=== PATIENT | female | born 1995 | race Asian ===

== ENCOUNTER 2019-01-13 09:27 | Emergency (ER) | payer OTHER ==
[~2019-01-13] VITALS: Ht 154.9 cm; Wt 48.0 kg
[2019-01-13 10:21] LABS: HEMATOCRIT 41.4 % (36.0-47.0); HEMOGLOBIN 13.4 g/dl (12.0-15.5); MEAN CORPUSCULAR HEMOGLOBIN 29.4 pg (27.0-33.0); MEAN CORPUSCULAR HGB CONC 32.4 g/dl (32.0-36.5); MEAN CORPUSCULAR VOLUME 90.8 fl (80.0-96.0); PLATELET COUNT, AUTOMATED 287 10^3/uL (150-450); RED BLOOD COUNT 4.56 10^6/uL (4.00-5.40); WHITE BLOOD COUNT 8.2 10^3/uL (4.0-10.0)
[2019-01-13 10:43] LABS: HCG, SERUM QUALITATIVE NEGATIVE (NEGATIVE)
[2019-01-13 10:50] LABS: ACETAMINOPHEN LEVEL < 2.0 UG/ML (10.0-30.0); ALBUMIN 4.3 GM/DL (3.2-5.2); ALT/SGPT 17 U/L (12-78); BILIRUBIN,DIRECT 0.2 MG/DL (0.0-0.2); BILIRUBIN,TOTAL 0.7 MG/DL (0.2-1.0); BLOOD UREA NITROGEN 10 MG/DL (7-18); CALCIUM LEVEL 9.3 MG/DL (8.5-10.1); CARBON DIOXIDE LEVEL 28 MEQ/L (21-32); CHLORIDE LEVEL 108 MEQ/L (98-107); CREATININE FOR GFR 1.05 MG/DL (0.55-1.30); ETHYL ALCOHOL (ETHANOL) < 0.003 % (0.000-0.010); GLOMERULAR FILTRATION RATE > 60.0 (>60); GLUCOSE, FASTING 95 MG/DL (70-100); POTASSIUM SERUM 4.1 MEQ/L (3.5-5.1); SALICYLATE LEVEL < 1.7 MG/DL (5.0-30.0); SODIUM LEVEL 141 MEQ/L (136-145); TOTAL PROTEIN 7.8 GM/DL (6.4-8.2)
[2019-01-13 10:52] LABS: AMPHETAMINES LEVEL URINE NEGATIVE (NEGATIVE); BARBITURATES URINE NEGATIVE (NEGATIVE); BENZODIAZEPINES URINE NEGATIVE (NEGATIVE); CANNABINOIDS URINE NEGATIVE (NEGATIVE); COCAINE METABOLITE URINE NEGATIVE (NEGATIVE); METHADONE URINE NEGATIVE (NEGATIVE); OPIATES URINE NEGATIVE (NEGATIVE); PHENCYCLIDINE URINE NEGATIVE (NEGATIVE)
[2019-01-13] MEDS: LIDOCAINE W/EPINEPHRINE 1% 20ML VIAL SC ONE ×2 (14:04→14:06)
[2019-01-13 14:40] VITALS: BP 125/72
== END 2019-01-13 14:53 | disposition home or self-care (01) ==
LOC: M ED 09:27
DX: F41.1 Generalized anxiety disorder (principal); F60.9 Personality disorder, unspecified; S81.812A Laceration without foreign body, left lower leg, initial encounter; W26.8XXA Contact with other sharp object(s), not elsewhere classified, initial encounter; Y92.89 Other specified places as the place of occurrence of the external cause; Z87.891 Personal history of nicotine dependence
CPT/HCPCS: 36415; 80048; 80076; 80307; 84443; 84703; 85027; 99284; G0480

== ENCOUNTER 2019-02-10 10:18 | Inpatient (IN) | payer OTHER ==
[~2019-02-10] VITALS: Ht 154.9 cm; Wt 48.3 kg
[2019-02-10] MEDS ORDERED: PROZ10CA7 PO (10:25)
[2019-02-10 12:46] LABS: HEMATOCRIT 40.5 % (36.0-47.0); HEMOGLOBIN 13.6 g/dl (12.0-15.5); MEAN CORPUSCULAR HEMOGLOBIN 30.2 pg (27.0-33.0); MEAN CORPUSCULAR HGB CONC 33.6 g/dl (32.0-36.5); MEAN CORPUSCULAR VOLUME 89.8 fl (80.0-96.0); PLATELET COUNT, AUTOMATED 321 10^3/uL (150-450); RED BLOOD COUNT 4.51 10^6/uL (4.00-5.40); WHITE BLOOD COUNT 7.7 10^3/uL (4.0-10.0)
[2019-02-10 13:15] LABS: HCG, SERUM QUALITATIVE NEGATIVE (NEGATIVE)
[2019-02-10 13:16] LABS: AMPHETAMINES LEVEL URINE NEGATIVE (NEGATIVE); BARBITURATES URINE NEGATIVE (NEGATIVE); BENZODIAZEPINES URINE NEGATIVE (NEGATIVE); CANNABINOIDS URINE NEGATIVE (NEGATIVE); COCAINE METABOLITE URINE NEGATIVE (NEGATIVE); METHADONE URINE NEGATIVE (NEGATIVE); OPIATES URINE NEGATIVE (NEGATIVE); PHENCYCLIDINE URINE NEGATIVE (NEGATIVE)
[2019-02-10 13:25] LABS: ACETAMINOPHEN LEVEL < 2.0 UG/ML (10.0-30.0); ALBUMIN 4.2 GM/DL (3.2-5.2); ALT/SGPT 12 U/L (12-78); BILIRUBIN,DIRECT 0.2 MG/DL (0.0-0.2); BILIRUBIN,TOTAL 0.5 MG/DL (0.2-1.0); BLOOD UREA NITROGEN 10 MG/DL (7-18); CALCIUM LEVEL 9.8 MG/DL (8.5-10.1); CARBON DIOXIDE LEVEL 28 MEQ/L (21-32); CHLORIDE LEVEL 108 MEQ/L (98-107); CREATININE FOR GFR 0.86 MG/DL (0.55-1.30); ETHYL ALCOHOL (ETHANOL) < 0.003 % (0.000-0.010); GLOMERULAR FILTRATION RATE > 60.0 (>60); GLUCOSE, FASTING 101 MG/DL (70-100); POTASSIUM SERUM 3.7 MEQ/L (3.5-5.1); SALICYLATE LEVEL < 1.7 MG/DL (5.0-30.0); SODIUM LEVEL 142 MEQ/L (136-145)
[2019-02-10] MEDS ORDERED: PREDOPD OU (14:15)
[2019-02-10] MEDS ORDERED: ACETAMINOPHEN TAB 650MG DOSE (2X325MG) PO PRN (15:45)
[2019-02-10] MEDS ORDERED: MOM 30ML SUSPENSION UDC PO PRN (15:45)
[2019-02-10] MEDS ORDERED: MAALOX 30 ML SUSP *UDC PO PRN (15:45)
[2019-02-10 18:00] VITALS: BP 144/82
[2019-02-10] MEDS ORDERED: prednisoLONE ACET 1% OPHTH SUSP 5ML OU STA (18:52)
[2019-02-10 19:25] VITALS: BP 144/82
[2019-02-10] MEDS ORDERED: FLUoxetine 10 MG CAP PO SCH (21:00)
[2019-02-10] MEDS: POLYVINYL ALCOHOL OPHTH SOLN 15 ML(LIQUITEARS) OU PRN (21:18)
[2019-02-10] MEDS: traZODone 50 MG TAB PO PRN (22:42)
[2019-02-10] MEDS: prednisoLONE ACET 1% OPHTH SUSP 5ML OU SCH (22:42)
[2019-02-11] MEDS: prednisoLONE ACET 1% OPHTH SUSP 5ML OU SCH ×5 (06:05→21:08)
[2019-02-11 06:44] VITALS: BP 137/67
[2019-02-11] MEDS ORDERED: prednisoLONE ACET 1% OPHTH SUSP 5ML OU SCH (09:00)
[2019-02-11] MEDS: POLYVINYL ALCOHOL OPHTH SOLN 15 ML(LIQUITEARS) OU PRN (11:56)
[2019-02-11] MEDS: PARoxetine 10MG TABLET PO SCH (12:45)
[2019-02-11 15:29] VITALS: BP 137/67
[2019-02-11 16:36] VITALS: BP 136/76
--- NOTE | 2019-02-11 17:00 | MHHPE ---
DATE OF ADMISSION: 02/10/2019 CURRENT MEDICATIONS: - Prozac 20 mg daily CHIEF COMPLAINT: Anxiety and depression. 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 [place] Patient was referred by Captain Ricky Liriano LCSW at [facility]. Patient had a prolonged panic attack and apparently was in crisis. Patient has a history of severe cutting and was recently brought to the emergency room for sutures. The major precipitating stressor of late is that a friend of hers committed suicide 2 or 3 weeks ago. Patient is having trouble coping with that. Patient apparently has had suicidal ideation in the past and had contemplated either using a [employer] weapon or getting a gun here in [facility]. Patient is very focused on her work. She minimizes her problem and her situation. Patient was just started on Prozac 2 or 3 days ago. She has just taken it once. She does not like medication. She claims to be tolerating it well. She denies any side effects from it. Patient states that her appetite is fine. She denies any recent weight change, either up or down. She claims her concentration is fine. She reports her energy level is good. She does get pleasure out of life; she enjoys running for example, she enjoys playing video games and socializing with friends. PAST PSYCHIATRIC HISTORY: Patient was seen by mental health staff at [facility] in July 2017 briefly. Those records are not available. She has no other previous psychiatric history. No history of hospitalizations. MEDICAL HISTORY: Patient is healthy. ALLERGIES: Patient denies. LEGAL HISTORY: None noted. CHEMICAL DEPENDENCY: None noted. SOCIAL HISTORY: Patient was born in [place]. She was raised in multiple states as her parents moved frequently. Patient lived in [place], [place], [place], and [place]. Her parents currently reside in [place]. Her father is a salesman. Her mother is an accounts payable accountant. Her brother is 23 and is working on a master's degree. Her sister is age 21 and will be graduating from [employer]. Patient is a college graduate. FAMILY PSYCHIATRIC HISTORY: None noted. MENTAL STATUS EXAMINATION: Patient is alert and oriented and somewhat cooperative. She does appear quite anxious with pressured speech and racing thoughts. She is not a good historian. Patient does report some grief over the loss of her friend but minimizes depressive symptoms. She denies being suicidal. She is not homicidal. Insight and judgment appear quite limited. Very secretive. She does appear to be intelligent. Grooming and hygiene appear good. No signs of cognitive deficits. ASSESSMENT: Patient does appear to be highly anxious and does have a history of depression and suicidal ideation even though she minimizes it. She shows no signs of working through her grief reaction. Patient appears to be a good candidate for a selective serotonin reuptake inhibitor (SSRI). Paxil is probably a better choice than Prozac, in my opinion. DIAGNOSES: Depressive disorder unspecified. Anxiety disorder unspecified. LENGTH OF STAY: 5-7 days. PLAN: Switch patient to Paxil. Staff to contact family. Involve in hospital milieu. GALDINO
[2019-02-11 19:32] VITALS: BP 136/76
--- NOTE | 2019-02-11 19:59 | CR.PDOC ---
General Date of Consultation: Feb 11, 2019 Attending Physician: REYES SHAW DO Consultation REASON FOR CONSULTATION/CHIEF COMPLAINT: Physical evaluation HISTORY OF PRESENT ILLNESS: Patient is 24 years old female with with no past medical history presented to the hospital in emotional distress secondary to loss significant one. According to patient she lost her close friend due to suicide a few weeks ago. After that she developed depression and anxiety. Patient denies fever, chills, nausea, vomiting, chest pain, palpitations, diarrhea or dysuria ALLERGIES: Beef (vomiting). HOME MEDICATIONS: Please see below. PAST MEDICAL HISTORY: No past medical history PAST SURGICAL HISTORY: No past surgical history FAMILY HISTORY: Father: Healthy Mother: Healthy Siblings: Healthy Children: None Hereditary Diseases: None Unexpected deaths due to medical reasons: None SOCIAL HISTORY: Marital status and/or living arrangements: Single Children: None Employment: [employer] Tobacco use: Denies ETOH: Denies Illicit drug use: Denies IV drug use: Denies Other relevant social factors: Denies REVIEW OF SYSTEMS: 10 point review of system is negative, except psychiatric mental status PHYSICAL EXAMINATION: VITAL SIGNS: Please see below. GENERAL APPEARANCE: NAD HEENT: PERRLA, EOMI RESPIRATORY: Clear to auscultation bilaterally CARDIOVASCULAR: S1-S2 ABDOMEN: Nontender, nondistended EXTREMITIES: No edema and NEUROLOGICAL: Nonfocal, cranial nerves intact PSYCHIATRIC: Patient demonstrates anxiety and pressured speech LABORATORY DATA: Please see below. ASSESSMENT/PLAN: Patient is 24 years old female was admitted to the hospital with depression and anxiety secondary to emotional distress. Patient does not have any acute physical problem/ diseases except mental problem. I would recommend to monitor EKG for QTC prolongation Vital Signs/I&O Vital Signs Date Time Temp Pulse Resp B/P (MAP) Pulse Ox O2 Delivery O2 Flow Rate FiO2 02/11/19 19:32 99.0 79 16 136/76 98 02/11/19 15:29 Room Air Allergies Coded Allergies: No Known Allergies (Unverified , 01/13/19) Home Medications Scheduled Fluoxetine HCl (Prozac) 10 Mg Capsule, 10 MG PO DAILY, (Reported) Prednisolone Acetate (Prednisolone Acetate 1% Opth Susp) 5 Ml Drops.susp, 1 DROP OU QID, (Reported) REYES SHAW DO Feb 11, 2019 19:59
[2019-02-11] MEDS ORDERED: PREDNISOLONE ACET 1% OU SCH (21:00)
[2019-02-11] MEDS: traZODone 50 MG TAB PO PRN (22:26)
[2019-02-12] MEDS: prednisoLONE ACET 1% OPHTH SUSP 5ML OU SCH ×5 (05:57→21:44)
[2019-02-12 06:45] VITALS: BP 118/65
[2019-02-12] MEDS: PARoxetine 10MG TABLET PO SCH ×2 (08:33→14:35)
[2019-02-12 18:00] VITALS: BP 144/70
[2019-02-12] MEDS: traZODone 50 MG TAB PO PRN (22:37)
[2019-02-13] MEDS: prednisoLONE ACET 1% OPHTH SUSP 5ML OU SCH ×5 (06:18→20:33)
[2019-02-13 06:46] VITALS: BP 134/77
[2019-02-13] MEDS: PARoxetine 10MG TABLET PO SCH (08:07)
[2019-02-13 08:34] VITALS: BP 134/77
--- NOTE | 2019-02-13 10:13 | MHIPNPDOC ---
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 Patient was referred by Captain Ricky Liriano LCSW at [facility]. Patient had a prolonged panic attack and apparently was in crisis. Patient has a history of severe cutting and was recently brought to the emergency room for sutures. The major precipitating stressor of late is that a friend of hers committed suicide 2 or 3 weeks ago. Patient is having trouble coping with that. Patient apparently has had suicidal ideation in the past and had contemplated either using a [employer] grade weapon or getting a gun here in [facility]. Patient is very focused on her work. She minimizes her problem and her situation. Patient was just started on Prozac 2 or 3 days ago. She has just taken it once. She does not like medication. She claims to be tolerating it well. She denies any side effects from it. Patient states that her appetite is fine. She denies any recent weight change, either up or down. She claims her concentration is fine. She reports her energy level is good. She does get pleasure out of life; she enjoys running for example, she enjoys playing video games and socializing with friends. VITAL SIGNS: See below. NEW TEST RESULTS: See below. CURRENT MEDICATIONS: See below. MENTAL STATUS EXAMINATION: Patient is alert and oriented and somewhat (look to assessment) cooperative. She does appear less anxious with no speech or thoughts. She is not a good historian. Patient does report some grief over the loss of her friend but minimizes depressive symptoms. She denies being suicidal. She is not homicidal. Insight and judgment appear quite limited. She is intelligent. Grooming and hygiene appear good. No signs of cognitive deficits. DIAGNOSES: Depressive disorder unspecified. Anxiety disorder unspecified. ASSESSMENT:Pt seen and states that her mood is better. Denies she likes the paxil and felt she was doing better on prozac. Pt states she's missing getting her hair done and going to a wedding to meet a partner b/c that's helpful for her. Spoke with pt about taking the time to devote to herself here regarding her mental health which she somewhat understood. States she's being social on the milieu which is beneficial. States she slept well last night. Feels she is tolerating her medications well. She is attending groups and finding them helpful. She denies SI/HI, hallucinations, delusions. Pt feels safe here. MANAGEMENT PLAN: continue plan. Stop paxil, restart and increase prozac for mood. prozac 20mg daily trazodone 50mg qhs prn insomnia TIME SPENT: 30 minutes. Vital Signs Vital Signs Date Time Temp Pulse Resp B/P (MAP) Pulse Ox O2 Delivery O2 Flow Rate FiO2 02/13/19 08:34 Room Air 02/13/19 08:34 97.5 90 12 134/77 98 Current Medications Current Medications Medications (Trade) Dose Ordered Sig/Corine Route PRN Reason Start Time Stop Time Status Last Admin Dose Admin Acetaminophen (Tylenol Tab) 650 mg Q6HP PRN PO HEADACHE or DISCOMFORT 02/10/19 15:45 02/10/19 16:54 Al Hydrox/Mg Hydrox/Simethicone (Mylanta) 30 ml Q4HP PRN PO HEARTBURN/INDIGESTION 02/10/19 15:45 Artificial Tears (Akwa Tears) 2 drop QIDP PRN OU DRY EYES 02/10/19 19:15 02/11/19 11:56 Fluoxetine HCl (PROzac) 10 mg QHS PO 02/10/19 21:00 02/11/19 12:41 DC 02/10/19 21:17 Home Med (Med Rec Complete!) ASDIRECTED XX 02/10/19 14:30 02/10/19 14:30 DC Magnesium Hydroxide (Milk Of Magnesia) 30 ml DAILYPRN PRN PO CONSTIPATION 02/10/19 15:45 Paroxetine HCl (PAXil) 10 mg DAILY PO 02/11/19 12:45 02/13/19 08:07 Patient Own Medication (Patient'S Own Med) prednisoLONE ACET 1% OPHTH S... 5XD OU 02/11/19 21:00 02/11/19 21:00 DC Prednisolone Acetate (Predforte 1% Ophth Susp) 2 drop 5XD OU 02/10/19 21:00 02/13/19 09:46 Prednisolone Acetate (Predforte 1% Ophth Susp) 2 drop QID OU 02/11/19 09:00 02/11/19 09:00 DC Prednisolone Acetate (Predforte 1% Ophth Susp) 2 drop STAT STAT OU 02/10/19 18:52 02/10/19 19:01 DC 02/10/19 19:17 Trazodone HCl (Desyrel) 50 mg QHSP PRN PO INSOMNIA 02/10/19 15:45 02/12/19 22:37 Allergies Coded Allergies: No Known Allergies (Unverified , 01/13/19) DIANA CHURCH DO Feb 13, 2019 10:13 am
[2019-02-13] MEDS ORDERED: FLUoxetine 20 MG CAP PO ONE (11:00)
--- NOTE | 2019-02-13 13:38 | MHIPN ---
DATE: 02/12/2019 VITAL SIGNS: Temperature 97.6, pulse 71, respirations 12, blood pressure 118/65. CURRENT MEDICATIONS: - Paxil 10 mg daily, patient refusing - trazodone 50 mg nightly as needed HISTORY OF PRESENT ILLNESS: Patient was not cooperative taking the Paxil even though she had agreed to it. She claims she does not like to take medications. Patient is advised that her chain of command and the [facility] staff would support her medication compliance, she grudgingly agrees to go back on the Paxil and will start it today. Patient has been attending groups. She minimizes all symptoms as usual. She claims her appetite is fine, she claims she always sleeps well at night, and that her concentration is excellent. Patient is very secretive about her family. She claims that she is not able to contact her father by cell phone, she claims that he is out of town in [place] on business. She claims her mother is in [place] and is not available. Patient gives changing stories to explain why she cannot contact her father. She does not appear to be credible. MENTAL STATUS EXAMINATION: Patient is alert and oriented but is not cooperative with the treatment plan. Insight appears poor. Judgment appears poor. She denies feeling depressed. She does appear to be quite anxious with racing thoughts. Speech is quite pressured. She is quite restless and jittery. No signs of psychosis. Grooming and hygiene appear good. ASSESSMENT: Patient appears to be quite evasive. She is not working through any grief issues regarding the of a close friend who committed suicide recently. She has been evasive regarding family contact. Patient grudgingly agrees to go on a trial of Paxil. Patient is advised that Dr. Delacruz will be back in tomorrow and will be her new psychiatrist. DIAGNOSES: 1. Depressive disorder unspecified. 2. Anxiety disorder unspecified. PLAN: Encourage trial on low dose Paxil. Followup with Dr. Delacruz. Continue with milieu therapy. Staff to continue attempts to contact family members for more collateral contact.
[2019-02-13 18:00] VITALS: BP 136/91
[2019-02-13] MEDS: traZODone 50 MG TAB PO PRN (22:57)
[2019-02-13] MEDS: POLYVINYL ALCOHOL OPHTH SOLN 15 ML(LIQUITEARS) OU PRN (22:57)
[2019-02-14] MEDS: prednisoLONE ACET 1% OPHTH SUSP 5ML OU SCH ×5 (05:57→21:14)
[2019-02-14 06:39] VITALS: BP 119/80
[2019-02-14] MEDS: FLUoxetine 20 MG CAP PO SCH (08:57)
--- NOTE | 2019-02-14 10:26 | MHIPNPDOC ---
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 Patient was referred by Captain Ricky Liriano LCSW at [facility]. Patient had a prolonged panic attack and apparently was in crisis. Patient has a history of severe cutting and was recently brought to the emergency room for sutures. The major precipitating stressor of late is that a friend of hers committed suicide 2 or 3 weeks ago. Patient is having trouble coping with that. Patient apparently has had suicidal ideation in the past and had contemplated either using a [employer] grade weapon or getting a gun here in [facility]. Patient is very focused on her work. She minimizes her problem and her situation. Patient was just started on Prozac 2 or 3 days ago. She has just taken it once. She does not like medication. She claims to be tolerating it well. She denies any side effects from it. Patient states that her appetite is fine. She denies any recent weight change, either up or down. She claims her concentration is fine. She reports her energy level is good. She does get pleasure out of life; she enjoys running for example, she enjoys playing video games and socializing with friends. VITAL SIGNS: See below. NEW TEST RESULTS: See below. CURRENT MEDICATIONS: See below. MENTAL STATUS EXAMINATION: Patient is alert and oriented and cooperative. She does appear less anxious with no speech or thoughts. She is not a good historian. Patient reports improved mood and anxiety. She denies being suicidal. She is not homicidal. Insight and judgment appear quite limited. She is intelligent. Grooming and hygiene appear good. No signs of cognitive deficits. DIAGNOSES: Depressive disorder unspecified. Anxiety disorder unspecified. ASSESSMENT:Pt seen and states that her mood is "alright". States she's tolerating her prozac and is finding increased dose beneficial. States she's being social on the milieu which is beneficial. States she slept well last night. Feels she is tolerating her medications well. She is attending groups and finding them helpful. She denies SI/HI, hallucinations, delusions. Pt feels safe here. MANAGEMENT PLAN: continue plan. prozac 20mg daily trazodone 50mg qhs prn insomnia TIME SPENT: 30 minutes. Vital Signs Vital Signs Date Time Temp Pulse Resp B/P (MAP) Pulse Ox O2 Delivery O2 Flow Rate FiO2 02/14/19 06:39 98.5 65 18 119/80 (93) 02/13/19 08:34 Room Air 02/13/19 08:34 98 Current Medications Current Medications Medications (Trade) Dose Ordered Sig/Corine Route PRN Reason Start Time Stop Time Status Last Admin Dose Admin Acetaminophen (Tylenol Tab) 650 mg Q6HP PRN PO HEADACHE or DISCOMFORT 02/10/19 15:45 02/10/19 16:54 Al Hydrox/Mg Hydrox/Simethicone (Mylanta) 30 ml Q4HP PRN PO HEARTBURN/INDIGESTION 02/10/19 15:45 Artificial Tears (Akwa Tears) 2 drop QIDP PRN OU DRY EYES 02/10/19 19:15 02/13/19 22:57 Fluoxetine HCl (PROzac) 10 mg QHS PO 02/10/19 21:00 02/11/19 12:41 DC 02/10/19 21:17 Fluoxetine HCl (PROzac) 20 mg DAILY PO 02/14/19 09:00 02/14/19 08:57 Home Med (Med Rec Complete!) ASDIRECTED XX 02/10/19 14:30 02/10/19 14:30 DC Magnesium Hydroxide (Milk Of Magnesia) 30 ml DAILYPRN PRN PO CONSTIPATION 02/10/19 15:45 Paroxetine HCl (PAXil) 10 mg DAILY PO 02/11/19 12:45 02/13/19 10:13 DC 02/13/19 08:07 Patient Own Medication (Patient'S Own Med) prednisoLONE ACET 1% OPHTH S... 5XD OU 02/11/19 21:00 02/11/19 21:00 DC Prednisolone Acetate (Predforte 1% Ophth Susp) 2 drop 5XD OU 02/10/19 21:00 02/14/19 08:57 Prednisolone Acetate (Predforte 1% Ophth Susp) 2 drop QID OU 02/11/19 09:00 02/11/19 09:00 DC Prednisolone Acetate (Predforte 1% Ophth Susp) 2 drop STAT STAT OU 02/10/19 18:52 02/10/19 19:01 DC 02/10/19 19:17 Trazodone HCl (Desyrel) 50 mg QHSP PRN PO INSOMNIA 02/10/19 15:45 02/13/19 22:57 Allergies Coded Allergies: No Known Allergies (Unverified , 01/13/19) DIANA CHURCH DO Feb 14, 2019 9:26 am
[2019-02-14 13:51] VITALS: BP 119/80
[2019-02-14 18:32] VITALS: BP 130/72
[2019-02-14] MEDS: traZODone 50 MG TAB PO PRN (22:39)
[2019-02-15 06:36] VITALS: BP 115/73
[2019-02-15] MEDS: prednisoLONE ACET 1% OPHTH SUSP 5ML OU SCH ×4 (09:09→21:17)
[2019-02-15] MEDS: FLUoxetine 20 MG CAP PO SCH (09:09)
[2019-02-15 18:00] VITALS: BP 129/72
[2019-02-15] MEDS: traZODone 50 MG TAB PO PRN (22:59)
[2019-02-16 06:47] VITALS: BP 128/75
[2019-02-16] MEDS: FLUoxetine 20 MG CAP PO SCH (09:35)
[2019-02-16] MEDS: prednisoLONE ACET 1% OPHTH SUSP 5ML OU SCH ×4 (09:35→21:17)
[2019-02-16 18:00] VITALS: BP 128/65
[2019-02-16] MEDS: traZODone 50 MG TAB PO PRN (22:37)
[2019-02-17 06:40] VITALS: BP 117/55
[2019-02-17] MEDS ORDERED: TRAZ-252 PO (09:00)
[2019-02-17] MEDS ORDERED: FLUO20CA19 PO (09:00)
--- NOTE | 2019-02-17 09:00 | MHDSPDOC ---
[facility] Discharge Summary Discharge Summary DATE OF ADMISSION: Feb 10, 2019 at 3:37 pm DATE OF DISCHARGE: Feb 17, 2019 DISCHARGE DIAGNOSES: Depressive disorder unspecified. Anxiety disorder unspecified. REASON FOR ADMISSION: Per Dr. 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 Patient was referred by Captain Ricky Liriano LCSW at [facility]. Patient had a prolonged panic attack and apparently was in crisis. Patient has a history of severe cutting and was recently brought to the emergency room for sutures. The major precipitating stressor of late is that a friend of hers committed suicide 2 or 3 weeks ago. Patient is having trouble coping with that. Patient apparently has had suicidal ideation in the past and had contemplated either using a [employer] weapon or getting a gun here in [facility]. Patient is very focused on her work. She minimizes her problem and her situation. Patient was just started on Prozac 2 or 3 days ago. She has just taken it once. She does not like medication. She claims to be tolerating it well. She denies any side effects from it. Patient states that her appetite is fine. She denies any recent weight change, either up or down. She claims her concentration is fine. She reports her energy level is good. She does get pleasure out of life; she enjoys running for example, she enjoys playing video games and socializing with friends." CONSULTANTS INVOLVED: none TREATMENT AND PROGRESS ON THE UNIT : Pt was admitted to [facility], seen for psychiatric assessment and restarted on her outpatient prozac increased to 20mg daily for mood and anxiety. She was attempted on a trial of paxil for one day but did not like it so was switched back to prozac which she said she liked, tolerated well, and found beneficial. She was provided trazodone 50mg qhs prn insomnia. Pt found her medications beneficial and tolerated them well. She attended groups daily during her stay. Her symptoms improved with treatment. On day of discharge she denied depression, baltazar, anxiety, insomnia, SI/HI, hallucinations, delusions. She was discharged home with her Swathi with follow-up at [facility]. She felt safe for discharge. DISCHARGE ASSESSMENT: Pt seen and states that her mood is "good" and that she's looking forward to going home today. States she's tolerating her prozac and is finding increased dose beneficial. States she's being social on the milieu and attending groups daily which is beneficial. States she slept well last night. Feels she is tolerating her medications well and finding them beneficial. She denies depression, baltazar, anxiety, insomnia,SI/HI, hallucinations, delusions. Pt feels safe to be discharged home with her Swathi. MENTAL STATUS EXAMINATION ON DISCHARGE: Patient is alert and oriented and cooperative. She does appear calm and cooperative with regular speech and thoughts. Patient reports "good" mood and denies anxiety. She denies being suicidal.She is not homicidal. Insight and judgment appear good. She is intelligent. Grooming and hygiene appear good. No signs of cognitive deficits. MEDICATIONS ON DISCHARGE: prozac 20mg daily trazodone 50mg qhs prn insomnia PLAN/FOLLOWUP ARRANGEMENTS: D/c home with Swathi with follow-up at [facility]. The amount of time spent in the coordination of care for this patient was approximately 30 minutes. Vital Signs/I&Os Vital Signs Date Time Temp Pulse Resp B/P (MAP) Pulse Ox O2 Delivery O2 Flow Rate FiO2 02/17/19 06:40 98.6 92 12 117/55 (75) 02/14/19 13:51 Room Air 02/14/19 13:51 98 Medications Scheduled Fluoxetine HCl (Prozac) 10 Mg Capsule, 10 MG PO DAILY, (Reported) Prednisolone Acetate (Prednisolone Acetate 1% Opth Susp) 5 Ml Drops.susp, 1 DROP OU QID, (Reported) Allergies Coded Allergies: No Known Allergies (Unverified , 01/13/19) DIANA CHURCH DO Feb 17, 2019 9:00 am
[2019-02-17] MEDS: prednisoLONE ACET 1% OPHTH SUSP 5ML OU SCH ×2 (09:02→14:08)
[2019-02-17] MEDS: FLUoxetine 20 MG CAP PO SCH (09:03)
== END 2019-02-17 14:30 | disposition home or self-care (01) | DRG 881 ==
LOC: M ED 10:18 → M ED INP 15:37 → M PSY 17:03
PROVIDERS: ADMIT Psychiatry & Neurology Psychiatry; ATTEND Psychiatry & Neurology Psychiatry
DX: F32.9 Major depressive disorder, single episode, unspecified (principal); F41.9 Anxiety disorder, unspecified; Z79.899 Other long term (current) drug therapy; Z91.5 Personal history of self-harm

== ENCOUNTER 2019-02-20 00:53 | Emergency (ER) | payer OTHER ==
[~2019-02-20] VITALS: Ht 154.9 cm; Wt 46.8 kg
[~2019-02-20 00:53] MED LIST: FLUO20CA19 PO; PREDOPD OU; PROZ10CA7 PO; TRAZ-252 PO
[2019-02-20] MEDS ORDERED: METOCLOPRAMIDE INJ 10MG/2ML VIAL (J2765) IV ONE (02:15)
[2019-02-20] MEDS ORDERED: diphenhydrAMINE INJ 50MG/ML VIAL (J1200) IV ONE (02:15)
[2019-02-20] MEDS ORDERED: NS 1,000 ML IV ONE (02:15)
[2019-02-20] MEDS ORDERED: KETOROLAC 30 MG/ML VIAL (J1885) IV ONE (02:15)
[2019-02-20 03:25] VITALS: BP 121/74
== END 2019-02-20 03:48 | disposition home or self-care (01) ==
LOC: M ED 00:53
DX: G43.909 Migraine, unspecified, not intractable, without status migrainosus (principal); H53.8 Other visual disturbances; Z98.890 Other specified postprocedural states; Z79.899 Other long term (current) drug therapy
CPT/HCPCS: 96361; 96374; 96375; 99284; J1200; J1885; J2765